=== PATIENT | male | born 1980 | race Caucasian/White ===

== ENCOUNTER 2020-12-24 10:33 | Emergency (ER) | payer OTHER ==
[~2020-12-24] VITALS: Ht 172.7 cm; Wt 68.0 kg
--- NOTE | 2020-12-24 10:50 | NUR ---
THE PATIENT IS BIB [facility] AND [employer] OFFICERS, WALKED INTO A PENTECOSTALISM,AGITATED,SUSPECTED OF BEING UNDER INFLUENCE OF DRUG/HALLUCINOGEN. DENIES PAIN. IN ROOM AIR AND DENIES SOB. RESPIRATION REGULAR AND UNLABORED. WILL CONTINUE TO MONITOR THE PATIENT.
[2020-12-24 11:17] LABS: BASOPHILS % (AUTO) 0.3 % (0.0-2.0); EOSINOPHILS % (AUTO) 0.4 % (0.0-6.0); HEMATOCRIT 43 % (39-51); HEMOGLOBIN 14.2 g/dL (13.5-17.5); LYMPHOCYTES # (AUTO) 1.5 K/uL (0.8-4.8); LYMPHOCYTES % (AUTO) 16.1 % (20.0-44.0); MEAN CORPUSCULAR HGB CONC 33 g/dl (31.0-36.0); MEAN CORPUSCULAR VOLUME 91 fL (80-96); MONOCYTES # (AUTO) 0.8 K/uL (0.1-1.30); MONOCYTES % (AUTO) 8.4 % (2.0-12.0); NEUTROPHILS # (AUTO) 6.9 K/uL (1.8-8.9); NEUTROPHILS % (AUTO) 74.8 % (43.0-81.0); PLATELET COUNT (AUTO) 285 K/uL (150-450); RED BLOOD CELL COUNT(AUTO) 4.71 MIL/uL (4.5-6.0); WHITE BLOOD COUNT (AUTO) 9.2 K/uL (4.3-11.0)
[2020-12-24 11:22] LABS: CARBON DIOXIDE 16 mmol/L (21-32); CHLORIDE 101 mmol/L (98-107); CREATININE 1.8 mg/dL (0.6-1.3); GLUCOSE 113 mg/dL (74-106); POTASSIUM 3.9 mmol/L (3.5-5.1); SODIUM SERUM 140 mmol/L (136-145); UREA NITROGEN, BLOOD 9 mg/dL (7-18)
[2020-12-24 11:27] LABS: ALANINE AMINOTRANSFERASE 39 U/L (12-78); ALBUMIN 4.1 g/dL (3.4-5.0); ALCOHOL, BLOOD < 3 mg/dL (0-0); ALKALINE PHOSPHATASE 69 U/L (46-116); ASPARTATE AMINOTRANSFERASE 32 U/L (15-37); BILIRUBIN,DIRECT 0.1 mg/dL (0.0-0.2); BILIRUBIN,TOTAL 0.1 mg/dL (0.2-1.0); TOTAL PROTEIN, SERUM 7.8 g/dL (6.4-8.2)
[2020-12-24 11:28] LABS: ACETAMINOPHEN < 0 ug/ml (10-30)
--- NOTE | 2020-12-24 11:31 | NUR ---
Urine collected and sent to the lab
--- NOTE | 2020-12-24 15:50 | NUR ---
Front Edger consult: industrial services worker consult requested for substance use. Patient is a 40-year-old, male. SW met with patient at his bedside in the emergency department. Patient was alert and oriented x3, name, time, and location. Patient was not oriented to situation. Patient presented agitated and irritable. Patient appeared well-groomed. Per chart, patient was brought in by ambulance and [employer] officers on 12/24/20 for agitated delirium. Patient stated that he is currently living with roommates at [address] [place] [address], [id number]; [phone]. Patient stated that he receives [employer] as a source of income. SW asked the patient about his history of substance use. Patient reported daily alcohol use and denied drug use. Per toxicology report, patient is positive for amphetamine, benzodiazepine, and cannabis. Patient denied history of mental illness. Patient denied suicidal or homicidal ideation. SW offered the patient resources for substance use. Patient thanked SW and stated that he would follow up independently for substance use rehabilitation. SW discussed discharge plans with the patient and patient stated that he would return to his prior living arrangement at home and would use public transportation. PLAN: Patient will return to his prior living arrangement at the time of discharge. No further SS intervention at this time, however, SW will remain available as needed. RESOURCES: Substance use resources provided included: [facility] Self[facility] ([facility]) ; [facility] [address] [place] [address] ; [place] [id number] [facility] [address] ; [facility] [address] [facility] [address] ; [facility] [address] [facility] [address] ; [facility] [address] [facility] [id number] ; [facility] [place]; [facility] [place]; [place]; [facility]
--- NOTE | 2020-12-24 17:16 | NUR ---
pt is aaox4, verbally responsive. denies any pain and discomfort. medically cleared by dr carey. discharge in stable in stable condition.
[2020-12-24 17:20] VITALS: BP 132/84
== END 2020-12-24 17:34 | disposition home or self-care (01) ==
LOC: ER 10:35
DX: S51.812A Laceration without foreign body of left forearm, initial encounter (principal); S20.319A Abrasion of unspecified front wall of thorax, initial encounter; S00.81XA Abrasion of other part of head, initial encounter; F15.10 Other stimulant abuse, uncomplicated; F19.959 Other psychoactive substance use, unspecified with psychoactive substance-induced psychotic disorder, unspecified; F22 Delusional disorders; R00.0 Tachycardia, unspecified; F12.10 Cannabis abuse, uncomplicated; R41.0 Disorientation, unspecified; Z60.2 Problems related to living alone; Y08.89XA Assault by other specified means, initial encounter; Y93.89 Activity, other specified; Y92.89 Other specified places as the place of occurrence of the external cause; Y99.8 Other external cause status
CPT/HCPCS: 36415; 70450-TC; 71045-TC; 73090-TC; 80048-TC; 80076-TC; 82550-TC; 82553; 85025-TC; G0480